=== PATIENT | female | born 1960 | race Caucasian/White ===

== ENCOUNTER 2024-10-15 18:12 | Emergency (ER) | payer OTHER, SELFPAY ==
[2024-10-15 18:24] VITALS: BP 141/83; PULSE 98; RESP 16; TEMP 36.6; O2SAT 98
--- NOTE | 2024-10-15 18:31 | XRR_ITS ---
PROCEDURE INFORMATION: Exam: XR Chest Exam date and time: 10/15/2024 6:33 PM Age: 64 years old Clinical indication: Condition or disease; Weakness; Unable to ambulate; Parkinsons disease TECHNIQUE: Imaging protocol: Radiologic exam of the chest. Views: 1 view. COMPARISON: No relevant prior studies available. FINDINGS: Lungs: Unremarkable. No consolidation. Pleural spaces: Unremarkable. No pleural effusion. No pneumothorax. Heart/Mediastinum: Unremarkable. No cardiomegaly. Bones/joints: Unremarkable. XR/XR chest 1V portable [id number] IMPRESSION: No acute findings.
--- NOTE | 2024-10-15 18:43 | ED_ITS ---
HPI - General Adult 2 General: Chief complaint: General Medical Stated complaint: Ronak Anderson\Marilin get UP and Down Time Seen by Provider: 10/15/24 18:31 History of Present Illness: 64-year-old female with a history of Par kinson's disease who has had worsening of her symptoms over the last week. She had seen her PCP and was treated for a urinary tract infection with Macrobid. Over the last day she is gotten much worse. She is shaking so bad and so weak she cannot stand up. She does not seem to have any altered mental status. No focal motor deficits. No fevers. No vomiting.. Related Data Home Medications Medication Instructions Recorded Confirmed atorvastatin 20 mg tablet 20 mg PO DAILY 12/31/21 09/26/24 carbidopa ER 25 mg-levodopa 100 mg 1.5 tab PO TID 10/26/22 09/26/24 tablet,extended release nadide (bulk) 100 % powder 2 ea miscellaneous .AM 08/25/24 09/26/24 (Nicotinamide Adenine Dinucleotide (NAD)) progesterone micronized 100 mg 100 mg PO QAM 08/25/24 09/26/24 capsule Previous Rx's Medication Instructions Recorded buspirone 5 mg tablet 5 mg PO TID PRN anxiety #90 tabs 08/25/24 fluoxetine 40 mg capsule 40 mg PO DAILY 30 days #30 caps 08/25/24 Allergies Allergy/AdvReac Type Severity Reaction Status Date / Time ibuprofen Allergy rash Verified 10/15/24 18:29 Penicillins Allergy breaks me Verified 10/15/24 18:29 out Review of Systems 2 Narrative: Constitutional symptoms: Negative except as documented in HPI. Skin symptoms: Negative except as documented in HPI. Eye symptoms: Negative except as documented in HPI. ENMT symptoms: Negative except as documented in HPI. Respiratory symptoms: Negative except as documented in HPI. Cardiovascular symptoms: Negative except as documented in HPI. Gastrointestinal symptoms: Negative except as documented in HPI. Genitourinary symptoms: Negative except as documented in HPI. Musculoskeletal symptoms: Negative except as documented in HPI. Neurologic symptoms: Negative except as documented in HPI. Psychiatric symptoms: Negative except as documented in HPI. Endocrine symptoms: Negative except as documented in HPI. PFSH ED 2 PFSH: Medical History ELVIN (generalized anxiety disorder) Psychiatric care Physical Exam 2 Narrative: EXAM NARRATIVE: General: Alert, no acute distress. Skin: Warm, dry. Head: Normocephalic, atraumatic. Neck: Supple, trachea midline. Eye: Extraocular movements are intact. Ears, nose, mouth and throat: mucosa moist. Cardiovascular: Regular, Normal peripheral perfusion. Respiratory: Lungs are clear to auscultation, respirations are non-labored, breath sounds are equal, Symmetrical chest wall expansion. Gastrointestinal: Soft, Nontender, Non distended Musculoskeletal: Normal ROM, no deformity. Neurological: Alert and oriented, No focal neurological deficit observed. Pill- rolling tremor Psychiatric: Cooperative, appropriate mood & affect. Course 2 Vital Signs: Vital signs: Vital Signs Temperature 97.8 F 10/15/24 18:24 Pulse Rate 91 10/15/24 19:26 Respiratory Rate 16 10/15/24 18:24 Blood Pressure 141/83 10/15/24 18:24 Pulse Oximetry 98 10/15/24 19:26 Oxygen Delivery Me thod Room Air 10/15/24 19:26 MDM - General Adult Medical Decision Making Medical decision making: Differential diagnosis for patient presenting with generalized weakness including but not limited to and based on the above HPI, review of systems and physical exam: Sepsis. Dehydration. Renal failure. Electrolyte abnormalities. Anemia. Congestive heart failure. Hypotension. Coronary syndrome. Hepatitis. Cirrhosis. Infections such as pneumonia, urinary tract infection, Tick bourne illness, Cellulitis, Viral infections including influenza and Covid-19. Workup: labwork and lab/exam driven imaging ordered to evaluate, rule in and rule out above pathologies. EKG: Time 1734. Rate 76. Normal sinus rhythm, No ST-T changes, no ectopy, normal MT & QRS intervals, This was reviewed and interpreted by myself the ER physician at 1738 Chest x-ray: No acute process. No infiltrate. No pneumothorax. This was reviewed and interpreted by myself the emergency room physician. I also reviewed the radiology report. Lab Review: Laboratory results were reviewed and interpreted by myself the emergency room physician. No leukocytosis. No anemia. No renal failure. No urinary tract infection. However urine is quite concentrated. With some slight ketones. This would indicate dehydration. I reviewed the patient's medical record. Reexamination: Patient remained stable. No increased work of breathing. No new altered mental status. No oxygen requirements Assessment and plan: Dehydration Parkinson's ? Normal saline bolus - Discharged home - Discussed plan with patient. Answered any questions. - Evaluation and treatment of this problem were appropriate in the emergency setting. Lab Data 10/15/24 18:40 10/15/24 18:40 Laboratory Results WBC 4.93 10^3/uL (3.29-11.43) 10/15/24 18:40 RBC 4.45 10^6/uL (3.85-5.65) 10/15/24 18:40 Hgb 13.00 g/dL (11.27-16.99) 10/15/24 18:40 Hct 39.7 % (36-47) 10/15/24 18:40 MCV 89.2 fl (85-98) 10/15/24 18:40 MCH 29.2 pg (27-33) 10/15/24 18:40 MCHC 32.7 g/dL (30-55) 10/15/24 18:40 RDW 13.2 % (12.1-15.1) 10/15/24 18:40 Plt Count 218 10^3/cmm (157-399) 10/15/24 18:40 MPV 8.6 fL (7.4-10.4) 10/15/24 18:40 Neut % (Auto) 69.6 % 10/15/24 18:40 Lymph % (Auto) 21.3 % 10/15/24 18:40 [place] % (Auto) 7.3 % 10/15/24 18:40 Eos % (Auto) 0.6 % 10/15/24 18:40 Baso % (Auto) 1.0 % 10/15/24 18:40 Neut # (Auto) 3.43 10^3/uL (1.8-7.7) 10/15/24 18:40 Lymph # (Auto) 1.1 10^3/uL (0.8-4.8) 10/15/24 18:40 [place] # (Auto) 0.4 10^3/uL (0.2-0.9) 10/15/24 18:40 Eos # (Auto) 0.0 10^3/uL (0.0-0.8) 10/15/24 18:40 Baso # (Auto) 0.1 10^3/uL (0.0-0.1) 10/15/24 18:40 Nucleated RBC % (auto) 0 % 10/15/24 18:40 Nucleated RBCs # 0.0 /100WBC 10/15/24 18:40 Sodium 139 mmol/L (136-145) 10/15/24 18:40 Potassium 3.6 mmol/L (3.5-5.1) 10/15/24 18:40 Chloride 102 mmol/L (98-107) 10/15/24 18:40 Carbon Dioxide 25 mmol/L (22-29) 10/15/24 18:40 Anion Gap 15.6 (5-19) 10/15/24 18:40 BUN 19 mg/dL (8-23) 10/15/24 18:40 Creatinine 0.6 mg/dL (0.5-0.9) 10/15/24 18:40 GFR Calculation 100.6 mL/min (90-130) 10/15/24 18:40 Glucose 109 mg/dL (65-115) 10/15/24 18:40 Calculated Osmolality 291 mOsm/kg (285-295) 10/15/24 18:40 Lactic Acid 0.7 mmol/L (0.5-2.2) 10/15/24 18:40 Calcium 9.7 mg/dL (8.5-10.5) 10/15/24 18:40 Total Bilirubin 0.5 mg/dL (0.15-1.2) 10/15/24 18:40 AST 48 U/L (0-32) H 10/15/24 18:40 ALT < 5 U/L (0-33) 10/15/24 18:40 Alkaline Phosphatase 79 U/L (35-105) 10/15/24 18:40 Total Protein 6.8 g/dL (6.6-8.7) 10/15/24 18:40 Albumin 4.3 g/dL (3.5-5.2) 10/15/24 18:40 Globulin 2.5 g/dL (1.3-4.6) 10/15/24 18:40 Urine Color Yellow (Yellow) 10/15/24 19:00 Urine Appearance Clear (CLEAR) 10/15/24 19:00 Urine pH 5.5 (5-7) 10/15/24 19:00 Ur Specific [place] 1.025 (1.005-1.030) 10/15/24 19:00 Urine Protein Negative (Negative) 10/15/24 19:00 Urine Glucose (UA) Negative (Normal) 10/15/24 19:00 Urine Ketones 1+ (Negative) H 10/15/24 19:00 Urine Blood Trace (Negative) A 10/15/24 19:00 Urine Nitrate Negative (Negative) 10/15/24 19:00 Urine Bilirubin Negative (Negative) 10/15/24 19:00 Urine Urobilinogen 1.0 mg/dL (Negative) 10/15/24 19:00 Ur Leukocyte Esterase Negative (Negative) 10/15/24 19:00 Urine RBC 3-5 /hpf (0-2) 10/15/24 19:00 Urine WBC 0-5 /hpf (0-5) 10/15/24 19:00 Ur Squamous Epith Cells 0-5 /hpf (0-5) 10/15/24 19:00 Amorphous Sediment Not Reportable 10/15/24 19:00 Urine Bacteria None seen /hpf (NONE) 10/15/24 19:00 Hyaline Casts 0-4 /lpf H 10/15/24 19:00 Coronavirus (PCR) Negative (Negative) 10/15/24 18:35 Influenza A (PCR) Negative (Negative) 10/15/24 18:35 Influenza Type B (PCR) Negative (Negative) 10/15/24 18:35 RSV (PCR) Negative (Negative) 10/15/24 18:35 All radiology interpretation(s) finalized by discharge Discharge Plan Discharge Patient Disposition: Home Clinical Impression: Parkinsons disease, Dehydration Condition: Stable Prescriptions: No Action atorvastatin 20 mg tablet 20 mg PO DAILY carbidopa-levodopa 25-100 mg tablet extended release 1.5 tab PO TID progesterone micronized 100 mg capsule 100 mg PO QAM Nicotinamide Adenine Dinuc. 100 % powder 2 ea miscellaneous .AM buspirone 5 mg tablet 5 mg PO TID PRN (Reason: anxiety) Qty: 90 3RF fluoxetine 40 mg capsule 40 mg PO DAILY 30 Days Qty: 30 3RF Discharge Orders: Discharge ED (Routine); Ordered 10/15/24 Ordered By: Valentine Schmidt Referrals: Renae Jackson MD [Primary Care Provider] - Discharge Diet: Usual diet Discharge Activity: Increase activity as tolerated Patient Instructions: Dehydration (ED), Opioid Safety, Pain Management Activity Restrictions/Additional Instructions: Thank you for choosing [facility] for your healthcare needs today. Please realize this is an emergency room and that we are providing you with a medical screening exam and this may not be complete and all inclusive of all the testing and or work up that you may need to determine your ailment or severity of your illness. You have been screened and evaluated and felt safe for discharge. Health conditions do change or evolve sometimes and as such it is important that you follow up with your Primary Doctor to be re checked, 3-5 days is a general good time frame for follow up. You are always welcome to return to the ED for re assessment if your symptoms are worsening or you have new concerns Coding Level of Care Code ED Litigation Claim Representative for Luis العراقي
[2024-10-15 18:48] VITALS: PULSE 93; O2SAT 98
[2024-10-15 18:56] LABS: Basophils # 0.1 10^3/uL (0.0-0.1); Eosinophils % 0.6 %; Hematocrit 39.7 % (36-47); Lymphocytes # 1.1 10^3/uL (0.8-4.8); Lymphocytes % 21.3 %; Mean Corpuscular HGB Conc 32.7 g/dL (30-55); Mean Corpuscular Hemoglobin 29.2 pg (27-33); Mean Corpuscular Volume 89.2 fl (85-98); Mean Platelet Volume 8.6 fL (7.4-10.4); Monocytes # 0.4 10^3/uL (0.2-0.9); Monocytes % 7.3 %; Neutrophils # 3.43 10^3/uL (1.8-7.7); Neutrophils % 69.6 %; Nucleated Red Blood Cells % 0 %; Platelet Count 218 10^3/cmm (157-399); Red Blood Count 4.45 10^6/uL (3.85-5.65); Red Cell Distribution Width 13.2 % (12.1-15.1); White Blood Count 4.93 10^3/uL (3.29-11.43)
[2024-10-15 19:20] LABS: Bilirubin Urine Negative (Negative); Blood Urine Trace (Negative); Glucose Urine UA Negative (Normal); Ketones Urine 1+ (Negative); Leukocyte Esterase Urine Negative (Negative); Nitrate Urine Negative (Negative); Protein Urine Negative (Negative); Specific Gravity, Urine 1.025 (1.005-1.030); Urine Appearance Clear (CLEAR); Urine Color Yellow (Yellow); pH Urine 5.5 (5-7)
[2024-10-15 19:21] LABS: Alanine Aminotransferase < 5 U/L (0-33); Albumin Level 4.3 g/dL (3.5-5.2); Alkaline Phosphatase 79 U/L (35-105); Aspartate Amino Transferase 48 U/L (0-32); Blood Urea Nitrogen 19 mg/dL (8-23); Calcium 9.7 mg/dL (8.5-10.5); Carbon Dioxide 25 mmol/L (22-29); Chloride 102 mmol/L (98-107); Creatinine Clr Calc Pharmacy 83.4279; Globulin 2.5 g/dL (1.3-4.6); Glomerular Filtration Rate 100.6 mL/min (90-130); Glucose 109 mg/dL (65-115); Osmolality Calculated 291 mOsm/kg (285-295); Sodium 139 mmol/L (136-145); Total Bilirubin 0.5 mg/dL (0.15-1.2); Total Protein 6.8 g/dL (6.6-8.7)
[2024-10-15 19:22] LABS: Anion Gap 15.6 (5-19); Lactic Sepsis W/Reflex 0.7 mmol/L (0.5-2.2); Potassium 3.6 mmol/L (3.5-5.1)
[2024-10-15 19:22] LABS: Bacteria Urine None Seen /hpf; Hyaline Casts Urine 0-4 /lpf; Squamous Epithelial Cell Urine 0-5 /hpf (0-5); WBC Urine 0-5 /hpf (0-5)
[2024-10-15 19:26] VITALS: PULSE 91; O2SAT 98
[2024-10-15 19:34] LABS: Covid PCR NEGATIVE (Negative); Influenza A NEGATIVE (Negative); Influenza B NEGATIVE (Negative); Respiratory Syncytial Virus Ce NEGATIVE (Negative)
[2024-10-15] MEDS: sodium chloride 0.9% 1,000 ML 999 ML IV (19:39)
[2024-10-15 20:04] VITALS: PULSE 110; O2SAT 98
[2024-10-15 20:29] VITALS: PULSE 107; O2SAT 97
== END 2024-10-15 20:30 | disposition home or self-care (01) ==
PROVIDERS: Emergency Provider Emergency Medicine; PCP Pediatrics
DX: G20.A1 Parkinson's disease without dyskinesia, without mention of fluctuations (principal); E86.0 Dehydration; Z11.52 Encounter for screening for COVID-19
CPT/HCPCS: 36415; 71045; 80053; 81001; 83605; 85025; 87040; 87637; 96360; 99284; J7030

== ENCOUNTER 2024-10-30 15:24 | Outpatient (CLI) | payer OTHER, SELFPAY ==
--- NOTE | 2024-10-30 15:30 | USCV_ITS ---
Alonso Doreen Age: 64 Gender: F : 1960 Exam Date: 10/30/2024 15:30 Ordering Phys: Dany Hogan MD Technologist: ODILON Exam Location: [facility] [place] Indication: Balance Issues Risk Factors: Previous Vascular Surgery: Right Brachial BP: / Left Brachial BP: / Right Left Velocity (cm/s) Spectral Plaque Velocity (cm/s) Spectral Plaque Syst/Diast Broadening Syst/Diast Broadening 93.60/ 27.00 Prox CCA 98.80 / 30.00 96.40/ 28.00 Mid CCA 89.70 / 33.10 82.20/ 26.70 Distal CCA 86.20 / 30.50 107.80/23.80 Prox ICA 123.20/ 26.90 69.10/ 20.10 Mid ICA 67.80 / 27.40 52.00/ 19.20 Distal ICA 54.30 / 21.90 143.20 ECA 155.90 1.30 ICA/CCA 1.40 Antegrade Vertebral Antegrade 75.40/ 23.50 cm/s 47.00/ 10.40 cm/s Tri Subclavian Tri 107.7 97.70 0 CONCLUSIONS Right ICA stenosis <50%. Mild atheromatous plaque right carotid bulb/ICA. Left ICA stenosis <50%. Mild atheromatous plaque left carotid bulb/ICA. Normal antegrade Doppler flow noted in the right vertebral artery. Normal antegrade Doppler flow noted in the left vertebral artery. Mason Mansfield MD (Electronically Signed) Final Date: 30 October 2024 17:13 S
== END 2024-10-30 15:25 | disposition home or self-care (01) ==
LOC: RAD 15:24
PROVIDERS: PCP Pediatrics; Visit Provider Psychiatry & Neurology Neurology
DX: R29.818 Other symptoms and signs involving the nervous system (principal); I65.23 Occlusion and stenosis of bilateral carotid arteries
CPT/HCPCS: 93880

== ENCOUNTER 2024-11-15 12:54 | Outpatient (CLI) | payer OTHER, SELFPAY ==
--- NOTE | 2024-11-15 13:00 | MR_ITS ---
WS: [id number] MRI HEAD WITH CONTRAST TECHNIQUE: Sagittal T1, T2 axial, T2 axial FLAIR, axial susceptibility weighted imaging, axial diffusion weighted images, and coronal T2 images were obtained. Pre and post-T1 axial and post T1 coronal images. ADC and FSPGR images. CLINICAL INFORMATION: G20.A1 - Parkinson's disease without dyskinesia, without ... COMPARISON: 2020 FINDINGS: Exam somewhat limited due to motion artifact. Fast imaging was performed to compensate for motion. No evidence of restricted diffusion to suggest acute ischemia. Ventricular system and basal cisterns are patent. Mild to moderate small vessel changes with moderate parenchymal volume loss. Small vessel changes in the aren. Normal posterior fossa. Normal vascular flow voids at the skull base. No extra-axial fluid collections. No evidence of mass or mass effect. Paranasal sinuses are well aerated. Mastoid air cells are well aerated. Normal posterior nasopharynx. No hemosiderin on the susceptibly weighted images. Normal optic chiasm and pituitary infundibulum. Mild symmetric atrophy temporal lobes and hippocampal formations. No abnormal gadolinium enhancement. Normal dural venous sinuses. MR/MR head wo/w con [id number] IMPRESSION: Some images degraded by motion. 1. No evidence of restricted diffusion to suggest acute ischemia. 2. Mild small vessel changes with moderate parenchymal volume loss. This is pr ogressed since 2020. Parenchymal volume loss has also progressed. 3. No hemosiderin on the susceptibility weighted images 4. No abnormal gadolinium enhancement. 5. Small vessel changes in the aren.
[2024-11-15] MEDS: gadobenate dimeglumine 20 mL vial 11 ML IV (13:59)
== END 2024-11-15 12:55 | disposition home or self-care (01) ==
PROVIDERS: PCP Pediatrics; Visit Provider Psychiatry & Neurology Neurology
DX: G20.A1 Parkinson's disease without dyskinesia, without mention of fluctuations (principal); R93.0 Abnormal findings on diagnostic imaging of skull and head, not elsewhere classified; G31.89 Other specified degenerative diseases of nervous system
CPT/HCPCS: 70553

== ENCOUNTER → 2024-12-12 14:18 | Outpatient (BNVA) | payer OTHER, SELFPAY | PROVIDERS: PCP Pediatrics; Visit Provider Orthopaedic Surgery | DX: M79.641 Pain in right hand (principal) | CPT/HCPCS: 73130 ==

== ENCOUNTER 2024-12-12 15:24 | Outpatient (CLI) | payer OTHER, SELFPAY | END 2024-12-12 15:25 | disposition home or self-care (01) | LOC: SPT 15:28 | PROVIDERS: PCP Pediatrics; Visit Provider Orthopaedic Surgery | DX: Z46.89 Encounter for fitting and adjustment of other specified devices (principal); S62.394D Other fracture of fourth metacarpal bone, right hand, subsequent encounter for fracture with routine healing; S62.396D Other fracture of fifth metacarpal bone, right hand, subsequent encounter for fracture with routine healing; X58.XXXD Exposure to other specified factors, subsequent encounter | CPT/HCPCS: L3807 ==